=== PATIENT | female | born 1975 | race Caucasian/White ===

== ENCOUNTER 2021-09-15 16:00 | Emergency (ER) | payer SELFPAY ==
[2021-09-15 16:05] VITALS: BP 178/80
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
[2021-09-15] MEDS ORDERED: ACETAMINOPHEN 325 MG TAB PO ONE (18:23)
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
== END 2021-09-15 20:59 | disposition home or self-care (01) ==
LOC: ED 16:00
DX: S20.219A Contusion of unspecified front wall of thorax, initial encounter (principal); S39.012A Strain of muscle, fascia and tendon of lower back, initial encounter; I10 Essential (primary) hypertension; Z98.890 Other specified postprocedural states; V89.9XXA Person injured in unspecified vehicle accident, initial encounter; Y93.89 Activity, other specified; Y92.89 Other specified places as the place of occurrence of the external cause; Y99.8 Other external cause status
CPT/HCPCS: 71046; 99283